=== PATIENT | female | born 2000 | race Two or more races ===

== ENCOUNTER 2022-11-11 14:00 | Inpatient (IN) | payer OTHER ==
[2022-11-11] MEDS: DEXTROSE 5%-LACTATED RINGERS 1,000 ML IV SCH ×2 (15:00→22:00)
[2022-11-11 15:47] VITALS: BMI 37.6
[2022-11-11 16:48] LABS: BASO % 0.1 % (0-2.0); EOS % 0.3 % (0-4.5); HEMATOCRIT 33.1 % (32.4-45.2); HEMOGLOBIN 10.7 GM/dL (10.7-15.3); LYMPH % 10.8 % (8-40); MCH 24.8 pg (25.7-33.7); MCHC 32.3 g/dl (32.0-36.0); MEAN CELL VOLUME 76.8 fl (80-96); MONO % 2.9 % (3.8-10.2); NEUT % 85.9 % (42.8-82.8); PLATELET COUNT 339 10^3/uL (134-434); RBC 4.31 M/mm3 (3.60-5.2); RDW 15.1 % (11.6-15.6); WHITE BLOOD COUNT 12.3 K/mm3 (4.0-10.0)
[2022-11-11 16:55] LABS: INR 0.98 (0.83-1.09); PROTHROMBIN TIME (PATIENT) 11.4 SEC (9.7-13.0)
[2022-11-11 16:57] LABS: ACTIVATED PTT 28.2 SECONDS (25.2-36.5)
[2022-11-11 17:06] LABS: CALCIUM 8.9 mg/dL (8.5-10.1)
[2022-11-11 17:07] LABS: BLOOD UREA NITROGEN 10.2 mg/dL (7-18)
[2022-11-11 17:10] LABS: CREATININE 0.6 mg/dL (0.55-1.3)
[2022-11-11] MEDS: MISOPROSTOL 25 MCG TABLET (COMPOUNDED BY PHARMACY) PV SCH ×2 (18:30→22:40)
[2022-11-11] MEDS ORDERED: SODIUM CHLORIDE 500 ML IV STA (19:49)
[2022-11-11] MEDS ORDERED: morphine SULFATE 4 MG/ML VIAL ONE (23:03)
[2022-11-11] MEDS ORDERED: morphine SULFATE 4 MG/ML VIAL IVPB ONE (23:15)
[2022-11-12] MEDS: DEXTROSE 5%-LACTATED RINGERS 1,000 ML IV SCH (00:25)
[2022-11-12] MEDS ORDERED: morphine SULFATE 4 MG/ML VIAL IVPB ONE (03:14)
[2022-11-12] MEDS ORDERED: morphine CARPU-JECT 8 MG/1 ML DISP.SYRIN IVPB ONE (03:14)
[2022-11-12] MEDS ORDERED: morphine SULFATE 4 MG/ML VIAL ONE (03:18)
[2022-11-12] MEDS ORDERED: SODIUM CHLORIDE 500 ML IV STA (03:35)
[2022-11-12] MEDS ORDERED: OXYTOCIN 20 UNITS in 0.9% NS 20 UNIT/1,000 ML INFUS.BAG IV ONE (04:04)
[2022-11-12] MEDS ORDERED: LIDOCAINE HCL 1% PRESERVATIVE FREE - 30ML VIAL ONE (04:04)
[2022-11-12] MEDS ORDERED: WITCH HAZEL 50% (TUCKS) 40 PAD/JAR PAD TP PRN (05:09)
[2022-11-12] MEDS ORDERED: BENZOCAINE 28 GM HEMORRHOIDAL OINTMENT TP PRN (05:09)
[2022-11-12] MEDS ORDERED: ACETAMINOPHEN 325 MG TABLET (FP) PO PRN (05:09)
[2022-11-12] MEDS ORDERED: IBUPROFEN 600 MG TABLET (FP) PO PRN (05:09)
[2022-11-12] MEDS ORDERED: OXYTOCIN 20 UNITS in 0.9% NS 20 UNIT/1,000 ML INFUS.BAG IV SCH ×2 (05:15→06:00)
[2022-11-12 07:50] LABS: CORD BASE EXCESS -8.9 mmol/L (0-2); CORD HCO3 21.1 mmHg (20-29); CORD PCO2 63.9 mmHg (30-78); CORD pH 7.136 (7.14-7.44)
[2022-11-12 07:52] LABS: CORD BASE EXCESS -9.6 mmol/L (0-2); CORD PCO2 50.3 mmHg (30-78); CORD pH 7.195 (7.14-7.44)
[2022-11-12] MEDS: PRENATAL VITAMINS W/ FOLIC ACID TABLET (FP) PO SCH (10:25)
[2022-11-12] MEDS: FERROUS SO4 325 MG TABLET (FP) PO SCH ×3 (10:25→17:58)
[2022-11-13 07:39] LABS: BASO % 0.3 % (0-2.0); EOS % 1.4 % (0-4.5); HEMATOCRIT 27.9 % (32.4-45.2); HEMOGLOBIN 9.2 GM/dL (10.7-15.3); LYMPH % 20.4 % (8-40); MCH 25.9 pg (25.7-33.7); MCHC 33.1 g/dl (32.0-36.0); MEAN CELL VOLUME 78.3 fl (80-96); MONO % 6.3 % (3.8-10.2); NEUT % 71.6 % (42.8-82.8); PLATELET COUNT 309 10^3/uL (134-434); RBC 3.56 M/mm3 (3.60-5.2); RDW 15.4 % (11.6-15.6); WHITE BLOOD COUNT 11.8 K/mm3 (4.0-10.0)
[2022-11-13] MEDS: FERROUS SO4 325 MG TABLET (FP) PO SCH ×2 (10:13→13:40)
[2022-11-13] MEDS: PRENATAL VITAMINS W/ FOLIC ACID TABLET (FP) PO SCH (10:13)
[2022-11-13 11:15] VITALS: BP 109/72; PULSE 101; RESP 16; TEMP 98.5
[2022-11-13 13:04] LABS: EPI CELLS 32 /uL (0-25.1); HYALINE CASTS 2 /uL (0-3.1); URINE APPEARANCE CLOUDY; URINE BACTERIA 384 /uL (0-1359); URINE BILIRUBIN NEGATIVE (NEGATIVE); URINE COLOR YELLOW; URINE GLUCOSE (UA) NEGATIVE (NEGATIVE); URINE KETONE NEGATIVE (NEGATIVE); URINE LEUK ESTERASE 3+ (NEGATIVE); URINE NITRITE NEGATIVE (NEGATIVE); URINE PROTEIN NEGATIVE (NEGATIVE); URINE RBC 555 /uL (0-23.9); URINE UROBILINOGEN 0.2 mg/dL (0.2-1.0); URINE WBC 598 /uL (0-25.8)
[2022-11-13] MEDS ORDERED: NITROFURANTOIN MACROCRYSTAL 50 MG CAPSULE (FP) PO ONE (13:30)
[2022-11-13] MEDS ORDERED: SENNOSIDES/DOCUSATE COMBO (SENNA PLUS) TABLET (UD) PO PRN (22:00)
== END 2022-11-13 15:10 | disposition home or self-care (01) | DRG 560 ==
LOC: JDEL 14:00 → JLDR 14:30 → J3W 11-12 07:38
PROVIDERS: ADMIT Obstetrics & Gynecology Maternal & Fetal Medicine; ATTEND Obstetrics & Gynecology Maternal & Fetal Medicine
PROC: 3E0P7VZ Introduction of Hormone into Female Reproductive, Via Natural or Artificial Opening (ICD-10-PCS; 2022-11-11)
PROC: 10907ZC Drainage of Amniotic Fluid, Therapeutic from Products of Conception, Via Natural or Artificial Opening (ICD-10-PCS; 2022-11-11)
PROC: 10E0XZZ Delivery of Products of Conception, External Approach (ICD-10-PCS; principal; 2022-11-12)
DX: O48.0 Post-term pregnancy (principal); Z3A.40 40 weeks gestation of pregnancy; Z37.0 Single live birth; O90.81 Anemia of the puerperium
CPT/HCPCS: 36415; 36600; 59025; 59409; 80048; 81003; 82803; 85025; 85610; 85730; 86780; 86850; 86900; 86901; 87086; C9803-CS; U0003; U0005